=== PATIENT | male | born 1930 | race Hispanic/Latino ===

== ENCOUNTER → 2019-02-09 | Outpatient (CLI) | payer OTHER, MEDICARE | END | disposition home or self-care (01) | LOC: OIH 10:18 | PROVIDERS: ATTEND Family Medicine | DX: J98.4 Other disorders of lung (principal); K22.8 Other specified diseases of esophagus; C80.1 Malignant (primary) neoplasm, unspecified; M47.814 Spondylosis without myelopathy or radiculopathy, thoracic region | CPT/HCPCS: 71250 ==